=== PATIENT | male | born 1995 | race Caucasian/White ===

== ENCOUNTER 2018-03-18 20:23 | Emergency (ER) | payer OTHER ==
[~2018-03-18] VITALS: Ht 190.5 cm; Wt 83.9 kg
[2018-03-18 20:46] LABS: URINE BILIRUBIN NEGATIVE (Negative); URINE BLOOD NEGATIVE (Negative); URINE CLARITY CLEAR; URINE COLOR YELLOW; URINE GLUCOSE-RANDOM NEGATIVE (Negative); URINE KETONES NEGATIVE (Negative); URINE LEUKOCYTES-REFLEX NEGATIVE (Negative); URINE NITRITE-REFLEX NEGATIVE (Negative); URINE PROTEIN NEGATIVE (Negative); URINE SPECIFIC GRAVITY 1.015 (1.005-1.030)
[2018-03-18 20:56] LABS: ABSOLUTE BASOPHILS 0.1 thou/uL (0.0-0.2); ABSOLUTE EOSINOPHILS 0.3 thou/uL (0.0-0.7); ABSOLUTE LYMPHOCYTES 2.1 thou/uL (0.8-5.3); ABSOLUTE MONOCYTES 0.5 thou/uL (0.0-1.2); ABSOLUTE NEUTROPHILS 4.7 thou/uL (1.6-8.1); BASOPHILS 0.7 %; EOSINOPHILS 3.7 %; HEMATOCRIT 48.3 % (42.0-52.0); HEMOGLOBIN 16.6 gm/dL (14.0-18.0); LYMPHOCYTES 27.7 %; MCH 30.7 pg (26.0-34.0); MCHC 34.4 g/dL (28.0-37.0); MCV 89.2 fL (80.0-100.0); MONOCYTES 6.2 %; MPV 10.2 fl. (7.2-11.1); NUCLEATED RBCS 0 /100WBC; PLATELET COUNT* 167 thou/uL (150-400); POLYS 61.7 %; RBC 5.41 mil/uL (4.50-6.00); RDW-CV 13.1 % (10.5-14.5); WBC 7.6 thou/uL (4.0-11.0)
[2018-03-18 20:59] LABS: CALCIUM 8.9 mg/dL (8.5-10.1); CREATININE 1.2 mg/dL (0.6-1.3)
[2018-03-18 21:09] LABS: ALBUMIN 4.1 g/dL (3.4-5.0); TOTAL BILIRUBIN 0.5 mg/dL (<0.1-1.0); TOTAL PROTEIN 7.4 g/dL (6.4-8.2)
[2018-03-18] MEDS ORDERED: ZOFRAN ODT4 MG PO (22:02)
[2018-03-18 22:14] VITALS: BP 128/77
== END 2018-03-18 22:15 | disposition home or self-care (01) ==
LOC: M.ERS 20:23
PROVIDERS: Emergency Medicine
DX: R11.2 Nausea with vomiting, unspecified (principal); R19.7 Diarrhea, unspecified; R10.31 Right lower quadrant pain; R10.13 Epigastric pain; F17.220 Nicotine dependence, chewing tobacco, uncomplicated